=== PATIENT | male | born 1945 | race Two or more races ===

== ENCOUNTER 2024-11-21 15:41 | Emergency (ER) | payer OTHER ==
[~2024-11-21] VITALS: Ht 157.5 cm; Wt 50.3 kg
[2024-11-21] MEDS ORDERED: SIMVASTATIN5 MG PO (16:20)
[2024-11-21] MEDS ORDERED: GALANTAMINE HBR24 MG PO (16:20)
[2024-11-21] MEDS ORDERED: NAMENDA1 EACH PO (16:20)
[2024-11-21] MEDS ORDERED: GLUMETZA500 MG PO (16:21)
[2024-11-21] MEDS ORDERED: ZESTRIL20 MG PO (16:21)
[2024-11-21] MEDS ORDERED: ONDANSETRON HCL 2 MG/ML VIAL IV ONE (17:30)
[2024-11-21] MEDS ORDERED: 0.9 % SODIUM CHLORIDE 1,000 ML IV SCH (17:30)
[2024-11-21] MEDS ORDERED: FAMOTIDINE/PF 20 MG/2 ML VIAL IV PUSH ONE (17:30)
[2024-11-21] MEDS ORDERED: HYOSCYAMINE SULFATE 0.125 MG TAB.SUBL SL ONE (17:30)
[2024-11-21] MEDS ORDERED: METRONIDAZOLE/SODIUM CHLORIDE 500 MG/100 ML PIGGYBACK IV ONE ×2 (17:37→17:45)
[2024-11-21] MEDS ORDERED: FAMOTIDINE/PF 20 MG/2 ML VIAL ONE (17:37)
[2024-11-21] MEDS ORDERED: ONDANSETRON HCL 2 MG/ML VIAL ONE (17:37)
[2024-11-21] MEDS ORDERED: HYOSCYAMINE SULFATE 0.125 MG TAB.SUBL ONE (17:37)
[2024-11-21 18:09] LABS: HEMOGLOBIN 14.2 g/dL (13-16.00); MEAN CELL VOLUME 96.5 fL (80.0-100.00); MEAN CORPUSCULAR HEMOGLOBIN 32.6 pg (27.00-32.0); MEAN CORPUSCULAR HGB CONC 33.8 g/dl (32.0-36.0); PLATELET COUNT 208 K/uL (150-450); RED BLOOD COUNT 4.36 M/uL (4.00-6.00); RED CELL DISTRIBUTION WIDTH 14.6 % (11.5-14.5)
[2024-11-21 19:49] LABS: ALBUMIN 3.6 gm/dL (3.4-5.0); BILIRUBIN TOTAL 0.53 mg/dL (0.3-1.2); CALCIUM 9.2 mg/dL (8.5-10.1); CREATININE SERUM 1.23 mg/dL (0.70-1.30); GFR 56.48; GLOBULINA 3.6 G/DL (2.4-3.5); POTASSIUM 3.87 mEq/L (3.5-5.1); TOTAL PROTEIN 7.2 gm/dL (6.4-8.2)
== END 2024-11-21 23:58 | disposition home or self-care (01) ==
LOC: EDBD 15:44 → ER 15:44
PROVIDERS: Emergency Medicine
DX: R11.10 Vomiting, unspecified (principal); R19.7 Diarrhea, unspecified; Z20.822 Contact with and (suspected) exposure to COVID-19; E11.9 Type 2 diabetes mellitus without complications; Z79.84 Long term (current) use of oral hypoglycemic drugs
CPT/HCPCS: 36415; 96365; 96366; 99282; J2405; J3490; J7030